=== PATIENT | male | born 1940 | race Caucasian/White ===

== ENCOUNTER 2017-01-14 15:15 | Inpatient (IN) | payer MEDICARE, BC ==
[2017-01-14] MEDS ORDERED: Sodium Chloride 0.9% 1,000 ML IV ONE (15:54)
[2017-01-14] MEDS ORDERED: Morphine 2 MG/ML Syringe IVPUSH ONE (16:21)
[2017-01-14] MEDS ORDERED: Ondansetron 4 MG/2 ML SDV IVPUSH ONE (16:21)
[2017-01-14] MEDS: Sodium Chloride 0.9% 1,000 ML IV SCH (17:18)
[2017-01-14] MEDS ORDERED: Ondansetron 4 MG Tab.DIS PO PRN (17:19)
[2017-01-14] MEDS: HYDROmorphone 2 MG/ML SDV IVPUSH PRN (17:40)
[2017-01-14] MEDS: Nystatin Susp 100,000 Unit/ML 60 ML Bottle PO SCH ×2 (18:00→21:41)
[2017-01-14] MEDS ORDERED: Levofloxacin/Dextrose 5%-Water 750 MG in Premix Bag 1 BAG IV ONE (20:30)
[2017-01-14] MEDS ORDERED: Enoxaparin 60 MG/0.6 ML Syringe ONE (21:29)
[2017-01-14] MEDS: Enoxaparin 40 MG/0.4 ML Syringe SUBCUT SCH (21:42)
[2017-01-14] MEDS: Albuterol/Ipratropium 3.0-0.5 MG/3 ML Neb Soln NEB SCH (21:44)
[2017-01-14] MEDS: Calcium Carbonate/Vitamin D3 1250 MG-200 Unit Tab PO SCH (21:44)
[2017-01-14] MEDS: Metoprolol Tartrate 25 MG Tab PO SCH (21:45)
[2017-01-14] MEDS: Acetaminophen 325 MG Tab PO SCH (21:46)
[2017-01-15] MEDS: Sodium Chloride 0.9% 1,000 ML IV SCH ×3 (02:36→22:16)
[2017-01-15] MEDS: Acetaminophen 325 MG Tab PO PRN ×2 (02:40→18:11)
[2017-01-15] MEDS: Albuterol/Ipratropium 3.0-0.5 MG/3 ML Neb Soln NEB SCH ×4 (07:15→20:58)
[2017-01-15] MEDS: HYDROmorphone 2 MG/ML SDV IVPUSH PRN ×3 (07:44→17:21)
[2017-01-15] MEDS: oxyCODONE 5 MG Tab PO PRN (07:46)
[2017-01-15] MEDS ORDERED: atorvaSTATin 10 MG Tab PO SCH (09:00)
[2017-01-15] MEDS ORDERED: Aspirin 325 MG Tab.EC PO SCH (09:00)
[2017-01-15] MEDS: Metoprolol Tartrate 25 MG Tab PO SCH ×2 (09:19→20:58)
[2017-01-15] MEDS: Calcium Carbonate/Vitamin D3 1250 MG-200 Unit Tab PO SCH ×2 (09:19→20:58)
[2017-01-15] MEDS: Enoxaparin 40 MG/0.4 ML Syringe SUBCUT SCH (09:20)
[2017-01-15] MEDS: Acetaminophen 325 MG Tab PO SCH ×2 (09:20→21:59)
[2017-01-15] MEDS: Nystatin Susp 100,000 Unit/ML 5 ML UD Cup PO SCH ×4 (09:20→20:57)
--- NOTE | 2017-01-15 11:57 | CR ---
INDICATION: Cough and fever. CHEST: An AP upright view of the chest 01/14/2017 was compared with 06/07/2011 , again revealing the heart to be mildly enlarged with post median sternotomy change and calcifications in the aorta. Lungs appear to be hyperaerated, suggesting the possibility of COPD. This should be correlated clinically. A definite active infiltrate or effusion was not identified. However, markings are somewhat heavy at the left lung base, and to a lesser extent right lung base, raising question of minimal patchy bronchopneumonia versus fibrosis. No consolidating pneumonia or effusion was identified, however. IMPRESSION: 1. No definite acute process, but difficult to exclude minimal patchy bronchopneumonia at the lung bases. 2. ASHD, post median sternotomy. 3. Possible COPD. MTDD
--- NOTE | 2017-01-15 18:32 | PCM.HP ---
H&P History of Present Illness - General Date of Service: 01/15/17 Admit Problem/Dx: Admission Diagnosis/Problem Admission Diagnosis/Problem Prostate cancer metastatic to multiple sites Pain management Source of Information: Patient, Old Records, RN History Limitations: Reports: Altered Mental Status (drowsy from pain meds) - History of Present Illness Initial Comments - Free Text/Narative: the patient is a 76-year-old male with a history of prostate cancer with bone metastases who presented to the emergency department last night with intractable pain and a desire to proceed with hospice or comfort cares.the patient had been receiving treatments through [facility] and developed severe jaw pain due to his treatment. Has been unable to eat or drink. Family and patient came in because he wants to stop treatment and begin comfort measures. Other HPI/Comments: Patient complains of generalized body aches, jaw pain, dry mouth, anorexia, no nausea or vomiting. Generalized Pain Score (Numeric/FACES): 4 - Related Data Allergies/Adverse Reactions: Allergies Allergy/AdvReac Type Severity Reaction Status Date / Time No Known Allergies Allergy Verified 01/14/17 17:40 Home Medications: Home Meds Metoprolol Tartrate [Lopressor] 25 mg PO BID 05/25/15 [History] atorvaSTATin [Lipitor] 10 mg PO DAILY 05/25/15 [History] Acetaminophen [Pain Relief] 650 mg PO BID 01/14/17 [History] Aspirin 325 mg PO DAILY 01/14/17 [History] Calcium Carbonate/Vitamin D3 [Calcium 600-Vit D3 800 Tab] 1 each PO BID [History] Hydrocodone/Acetaminophen [Hydrocodon-Acetaminophen 5-325] 1 each PO Q4H PRN [History] Nystatin [Nystatin] 5 ml PO ASDIRECTED 01/14/17 [History] Prochlorperazine Maleate [Prochlorperazine Maleate] 10 mg PO QID PRN 01/14/17 [ History] Tamsulosin [Tamsulosin 24 Hr] 0.4 mg PO DAILY 01/14/17 [History] predniSONE [Prednisone] 5 mg PO BID 01/14/17 [History] Past Medical History HEENT History: Reports: Cataract, Hard of Hearing Cardiovascular History: Reports: Aneurysm, Bypass, Hypertension, CA, Other (See Below) Other Cardiovascular History: carotid artery insufficiency Respiratory History: Reports: SOB Gastrointestinal History: Reports: Chronic Constipation, Colon Polyp Genitourinary History: Reports: Prostate Disorder, Urinary Incontinence Other Genitourinary History: prostate CA Musculoskeletal History: Reports: Arthritis Other Musculoskeletal History: CONGENITAL LEFT ELBOW CONTRACTURE Oncologic (Cancer) History: Reports: Colon, Metastatic, Prostate Other Oncologic History: CA prostate with david 'all over' - Infectious Disease History Infectious Disease History: Reports: Mumps - Past Surgical History HEENT Surgical History: Reports: Cataract Surgery, Tonsillectomy Cardiovascular Surgical History: Reports: Carotid Endarterectomy, Coronary Artery Bypass Other Cardiovascular Surgeries/Procedures: 3 vessel bypass GI Surgical History: Reports: Colon, Colonoscopy, Polypectomy Musculoskeletal Surgical History: Reports: Carpal Tunnel, Other (See Below) Other Musculoskeletal Surgeries/Procedures:: bilat carpal tunnel, back surgery Oncologic Surgical History: Reports: None Social & Family History - Family History Family Medical History: Noncontributory - Tobacco Use Smoking Status *Q: Former Smoker Years of Tobacco use: 20 Used Tobacco, but Quit: Yes Month Tobacco Last Used: 1976 Second Hand Smoke Exposure: No - Caffeine Use Caffeine Use: Reports: Coffee - Alcohol Use Days Per Week of Alcohol Use: 7 Number of Drinks Per Day: 2 Total Drinks Per Week: 14 Date of Last Drink: 01/04/17 - Recreational Drug Use Recreational Drug Use: No H&P Review of Systems - Review of Systems: Review Of Systems: See Below General: Reports: Malaise, Weakness, Fatigue, Night Sweats, Decreased Appetite, Weight Loss HEENT: Reports: Other (facial pain) Pulmonary: Reports: Shortness of Breath (with activity) Cardiovascular: Reports: Dyspnea on Exertion, Lightheadedness Gastrointestinal: Reports: Anorexia Genitourinary: Reports: No Symptoms Musculoskeletal: Reports: Muscle Pain (body aches) Skin: Reports: No Symptoms Exam - Exam Exam: See Below - Vital Signs Vital Signs: Last Vital Signs Temp 37.2 C 01/15/17 11:00 Pulse 90 01/15/17 16:42 Resp 20 01/15/17 11:00 BP 141/66 H 01/15/17 11:00 Pulse Ox 100 01/15/17 16:40 Weight: 67.358 kg - Exam Quality Assessment: Supplemental Oxygen General: Cooperative, Sedated, Lethargic HEENT: PERRLA, Other (mucous membranes coated and dry.) Neck: Supple Lungs: Clear to Auscultation, Decreased Breath Sounds Cardiovascular: Regular Rate, Regular Rhythm GI/Abdominal Exam: Normal Bowel Sounds, Soft, Non-Tender Extremities: No Pedal Edema Skin: Warm, Dry, Intact - Patient Data Lab Results Last 24 hrs: Laboratory Results - last 24 hr 01/14/17 01/14/17 01/15/17 Range/Units 19:47 20:15 07:05 PT 13.8 H (8.7-11.1) INR 1.36 H (0.89-1.13) APTT 29.8 (24.4-33.2) SECONDS ABG pH 7.50 H (7.35-7.45) ABG pCO2 31 L (35-45) mmHg ABG pO2 63 L (83-108) mmHg ABG HCO3 23 (22-26) mmol/L ABG O2 Saturation 94 L (96-97) % ABG Base Excess 1.0 (-2-2) Andres Test Passed O2 Delivery Device Nasal cannula Magnesium (1.8-2.5) mg/dL Troponin I (0.02-0.06) NG/ML Urine Color Yellow (YELLOW) Urine Appearance Clear (CLEAR) Urine pH 5.0 (5.0-6.5) Ur Specific [place] 1.020 (1.010-1.025) Urine Protein 500 H (NEGATIVE) mg/dL Urine Glucose (UA) >1000 H (NEGATIVE) mg/dL Urine Ketones 15 H (NEGATIVE) mg/dL Urine Occult Blood Moderate H (NEGATIVE) Urine Nitrite Negative (NEGATIVE) Urine Bilirubin Negative (NEGATIVE) Urine Urobilinogen Normal (NEGATIVE) mg/dL Ur Leukocyte Esterase Negative (NEGATIVE) Urine RBC 0-5 (0) Urine WBC 0-5 (0) Ur Squamous Epith Cells Few H (NS,R,O) Urine Bacteria Moderate H (NS) Hyaline Casts Few H (NS) 01/15/17 01/15/17 Range/Units 07:05 07:05 PT (8.7-11.1) INR (0.89-1.13) APTT (24.4-33.2) SECONDS ABG pH (7.35-7.45) ABG pCO2 (35-45) mmHg ABG pO2 (83-108) mmHg ABG HCO3 (22-26) mmol/L ABG O2 Saturation (96-97) % ABG Base Excess (-2-2) Andres Test O2 Delivery Device Magnesium 2.1 (1.8-2.5) mg/dL Troponin I 0.30 H (0.02-0.06) NG/ML Urine Color (YELLOW) Urine Appearance (CLEAR) Urine pH (5.0-6.5) Ur Specific [place] (1.010-1.025) Urine Protein (NEGATIVE) mg/dL Urine Glucose (UA) (NEGATIVE) mg/dL Urine Ketones (NEGATIVE) mg/dL Urine Occult Blood (NEGATIVE) Urine Nitrite (NEGATIVE) Urine Bilirubin (NEGATIVE) Urine Urobilinogen (NEGATIVE) mg/dL Ur Leukocyte Esterase (NEGATIVE) Urine RBC (0) Urine WBC (0) Ur Squamous Epith Cells (NS,R,O) Urine Bacteria (NS) Hyaline Casts (NS) Result Diagrams: 01/14/17 15:47 01/14/17 15:47 *Q Meaningful Use (ADM) - VTE *Q VTE Criteria *Q: - Stroke *Q Stroke Criteria *Q: - AMI *Q AMI Criteria *Q: - Problem List (1) Prostate cancer metastatic to bone SNOMED Code(s): 24602962 ICD Code: C61 - MALIGNANT NEOPLASM OF PROSTATE; C79.51 - SECONDARY MALIGNANT NEOPLASM OF BONE Status: Acute Current Visit: Yes Problem Details: Patient with terminal disease, 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 Pain management, symptom management, and we will work with family on disposition. They met with hospice today, seeking instead long term facility for 24 hour care. Once pain is controlled, may be discharged to skilled facility for end of life cares. Problem List Initiated/Reviewed/Updated: Yes Orders Last 24hrs: Active Orders 24 hr Category Date Time Status Oxygen Therapy [RC] PRN Care 01/14/17 17:32 Active Vital Signs [RC] 08,12,16,20,00,04 Care 01/14/17 17:32 Active Consult to Hospice [CONS] Routine Cons 01/15/17 08:00 Active Acetaminophen [Tylenol] Med 01/14/17 21:00 Active 650 mg PO BID Acetaminophen [Tylenol] Med 01/15/17 00:10 Active 650 mg PO Q4H PRN Aspirin [Ecotrin] Med 01/15/17 09:00 Active 325 mg PO DAILY Calcium Carbonate/Vitamin D3 [Calcium Carbonate/Vitamin Med 01/14/17 21:00 Active D 1250 MG-200 Unit] 1 tab PO BID HYDROmorphone [Dilaudid] Med 01/14/17 17:34 Active 0.5 mg IVPUSH Q2H PRN Metoprolol Tartrate [Lopressor] Med 01/14/17 21:00 Active 25 mg PO BID Nystatin [Mycostatin] Med 01/15/17 09:00 Active 5 ml PO QID atorvaSTATin [Lipitor] Med 01/15/17 09:00 Active 10 mg PO DAILY EKG 12 Lead [EK] AM Ther 01/15/17 05:11 Ordered Medication Orders Acetaminophen (Tylenol) 650 mg PO BID [facility] [place] Last Admin: 01/15/17 09:20 Dose: 650 mg Admin: 01/14/17 21:46 Dose: 650 mg Acetaminophen (Tylenol) 650 mg PO Q4H PRN PRN Reason: Temperature Last Admin: 01/15/17 18:11 Dose: 650 mg Admin: 01/15/17 02:40 Dose: 650 mg Albuterol/Ipratropium (Duoneb 3.0-0.5 Mg/3 Ml) 3 ml NEB QIDRT [facility] [place] Last Admin: 01/15/17 16:40 Dose: 3 ml Admin: 01/15/17 11:05 Dose: 3 ml Admin: 01/15/17 07:15 Dose: 3 ml Admin: 01/14/17 21:44 Dose: 3 ml Aspirin (Ecotrin) 325 mg PO DAILY [facility] [place] Last Admin: 01/15/17 09:19 Dose: 325 mg Atorvastatin Calcium (Lipitor) 10 mg PO DAILY [facility] Last Admin: 01/15/17 09:19 Dose: 10 mg Calcium Carbonate (Calcium Carbonate/Vitamin D 1250 Mg-200 Unit) 1 tab PO BID [facility] Last Admin: 01/15/17 09:19 Dose: 1 tab Admin: 01/14/17 21:44 Dose: 1 tab Enoxaparin Sodium (Lovenox) 40 mg SUBCUT DAILY [facility] [place] Last Admin: 01/15/17 09:20 Dose: 40 mg Admin: 01/14/17 21:42 Dose: 40 mg Hydromorphone HCl (Dilaudid) 0.5 mg IVPUSH Q2H PRN PRN Reason: Pain Last Admin: 01/15/17 17:21 Dose: 0.5 mg Admin: 01/15/17 13:07 Dose: 0.5 mg Admin: 01/15/17 07:44 Dose: 0.5 mg Admin: 01/14/17 17:40 Dose: 0.5 mg Sodium Chloride (Normal Saline) 1,000 mls @ 100 mls/hr IV ASDIRECTED [facility] [place] Last Admin: 01/15/17 12:51 Dose: 100 mls/hr Infusion: 01/15/17 12:36 Dose: 100 mls/hr Admin: 01/15/17 02:36 Dose: 100 mls/hr Infusion: 01/15/17 02:36 Dose: 100 mls/hr Admin: 01/14/17 17:18 Dose: 100 mls/hr Metoprolol Tartrate (Lopressor) 25 mg PO BID [facility] [place] Last Admin: 01/15/17 09:19 Dose: 25 mg Admin: 01/14/17 21:45 Dose: 25 mg Nystatin (Mycostatin) 5 ml PO QID [facility] Last Admin: 01/15/17 17:15 Dose: 5 ml Admin: 01/15/17 12:54 Dose: 5 ml Admin: 01/15/17 09:20 Dose: 5 ml Ondansetron HCl (Zofran Odt) 4 mg PO Q6H PRN PRN Reason: nausea, able to take PO Oxycodone HCl (Oxycodone) 5 mg PO Q4H PRN PRN Reason: Pain (moderate 4-6) Last Admin: 01/15/17 07:46 Dose: 5 mg Senna/Docusate Sodium (Senna Plus) 1 tab PO BID PRN PRN Reason: Constipation Last Admin: 01/15/17 13:06 Dose: 1 tab
[2017-01-15] MEDS ORDERED: LORazepam 0.5 MG Tab PO PRN (18:53)
[2017-01-16] MEDS: Morphine 2 MG/ML Syringe IVPUSH PRN ×4 (03:05→17:56)
[2017-01-16] MEDS: Acetaminophen 325 MG Tab PO PRN (03:29)
[2017-01-16] MEDS: Albuterol/Ipratropium 3.0-0.5 MG/3 ML Neb Soln NEB SCH ×4 (07:27→20:43)
[2017-01-16] MEDS: Sodium Chloride 0.9% 1,000 ML IV SCH ×2 (08:40→17:57)
[2017-01-16] MEDS: Calcium Carbonate/Vitamin D3 1250 MG-200 Unit Tab PO SCH (08:44)
[2017-01-16] MEDS: Metoprolol Tartrate 25 MG Tab PO SCH (08:44)
[2017-01-16] MEDS: Nystatin Susp 100,000 Unit/ML 5 ML UD Cup PO SCH ×4 (08:49→20:43)
[2017-01-16] MEDS: Acetaminophen 325 MG Tab PO SCH (08:49)
--- NOTE | 2017-01-16 11:00 | ER ---
DATE SEEN: 01/14/2017 TIME SEEN: The patient was seen at 1614 hours. HISTORY OF PRESENT ILLNESS: Celso is a 76-year-old man, who has previously been diagnosed with prostate cancer with mets to the bone, hypertension, lymphedema, extensive rash in his mouth (thrush). He has had 2 chemotherapy treatments. His left carotid artery is compromised, and he is coughing. He has mild left face and jaw discomfort and swelling. Denies any recent dental problems. He feels "like a piece of crap." Previous knee surgery in 1976, prostate surgery with prostate biopsies, hypertension, coronary artery disease, and swelling in his ankles. No congestive heart failure. History of hypertension, right leg reconstructive surgery, and plastic surgery in 2012. Never smoked. He is overweight. MEDICATIONS: 1. DuoNeb. 2. Aspirin. 3. Atorvastatin. 4. Calcium carbonate. 5. Acetaminophen and hydrocodone. 6. Prednisone. 7. Flomax. 8. Compazine. REVIEW OF SYSTEMS: The patient feels uncomfortable, was not delirious. Denies headache, neck stiffness, shortness of breath, cough, abdominal discomfort, or leg pain. He just feels weak and feels miserable. OBJECTIVE: VITAL SIGNS: Blood pressure supine 117/72, repeat supine 166/63, repeat sitting 146/63, and normal supine 143/67. Heart rate 100 and went down to 94, respirations 20, and oxygen saturation 98% to 100%. GENERAL: The patient is alert, but has a moses face. It is more moses than normal. Normally, he is without a moses face. There is mild tenderness to the side of his face on the left side. No history of falls or trauma. There is mild increased warmth but no excessive changes there. HEENT: Pharynx without abnormality. Most notable, the patient has florid thrush in his mouth. He has a white coat in his mouth. No thyromegaly. No mass in the neck. No maxillary sinus tenderness. No neck stiffness. Pupils are equal, round, and reactive to light. NECK: No bruits in neck. Neck is supple. LUNGS: Scattered rales in the lungs. HEART: S1, S2. No murmur. ABDOMEN: Soft. Moderate fullness in the abdomen. Mild tenderness to the left and right upper and lower quadrants, not extensive. No guarding. No CVA percussion tenderness. NEUROLOGIC: Deep tendon reflexes hypoactive, but present in upper and lower extremities. Cranial nerves 2 through 12 intact. Oriented x3. The patient has an infection. Etiology of the infection is indeterminate. His chest x-ray is nondescript, unchanged from previous chest x-ray. No signs of cardiomegaly, cephalization, he has sternotomy incision, wires anterior. Diaphragms are crisp with no lesions noted in the lungs. Assessment: Etiology for the patient's fever indeterminate, but perhaps related to his prostate cancer and metastases to his bone and associated fever. LABORATORY FINDINGS: White count 26,000, PMNs 95, lymphocytes 1, monos 2, a few toxic granulations, and bands 2%. ABGs: pH of 7.50, pCO2 of 31, pO2 of 63, and base excess of 1 - hyperventilation, respiratory alkalosis secondary to hypoxia and poor ventilation. Complete metabolic panel: Sodium 136, potassium 4.1, chloride 99, bicarb 25, BUN 29, BUN and creatinine ratio 32 - dehydration, GFR greater than 60, lactic acid 1.5, and calcium 7.8 with an abnormal albumin of 2.3, which results in calculated calcium of 8.5 range. Urinalysis: Greater than 1,000 glucose, greater than 500 protein, moderate occult blood, moderate bacteria in the urine, a few hyaline casts, and a few epithelial cells. DIAGNOSES: 1. Evidence for an infectious, etiology is indeterminate. He has had prostate cancer. Plan Levaquin. See EKG. Chest x-ray: No evidence for infiltrate. Blood culture is pending. Lactic acid is not elevated. 2. Status post triple bypass, carotid endarterectomy, and previous partial colon resection. 3. Neutrophilic leukocytosis. The patient is admitted for observation and cares. He is on enoxaparin, because of his cancer, to diminish potential for DVT. The patient was given morphine for his pain, requires more pain medicine p.r.n. /[id number] SIMA/VI
--- NOTE | 2017-01-16 13:09 | PCM.PN ---
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 He came in febrile with increased white count appearing septic. Family and patient are interested in comfort measures. He is very comfortable today. Resting well. No abdominal pain, no nausea. Does feel sense of fullness and discomfort suprapubically and he was straight cathetered for over 400 mL of urine earlier today when he wasn't voiding well. IV fluids are running at 100 cc/hr. I had a long discussion with the and son who were present, regarding the patient's positive blood cultures, fever, and evidence of facial infection. He and they would like to pursue aggressive comfort measures with no life-prolonging treatment. He is currently well-controlled. Functional Status: Reports: Pain Controlled - Patient Data Vitals - Most Recent: Last Vital Signs Temp 37.1 C 01/16/17 12:00 Pulse 96 01/16/17 09:19 Resp 18 01/16/17 12:00 BP 126/76 01/16/17 12:00 Pulse Ox 91 L 01/16/17 12:39 Weight - Most Recent: 68.583 kg I&O - Last 24 Hours: Intake & Output 01/15/17 01/16/17 01/16/17 22:59 06:59 14:59 Intake Total 1019 880 Output Total 400 575 Balance 619 305 Med Orders - Current: Current Medications Acetaminophen (Tylenol) 650 mg PO BID [facility] Last Admin: 01/16/17 08:49 Dose: 650 mg Acetaminophen (Tylenol) 650 mg PO Q4H PRN PRN Reason: Temperature Last Admin: 01/16/17 03:29 Dose: 650 mg Albuterol/Ipratropium (Duoneb 3.0-0.5 Mg/3 Ml) 3 ml NEB QIDRT [facility] Last Admin: 01/16/17 10:59 Dose: 3 ml Calcium Carbonate (Calcium Carbonate/Vitamin D 1250 Mg-200 Unit) 1 tab PO BID [facility] Last Admin: 01/16/17 08:44 Dose: 1 tab Hydromorphone HCl (Dilaudid) 0.5 mg IVPUSH Q2H PRN PRN Reason: Pain Last Admin: 01/15/17 17:21 Dose: 0.5 mg Sodium Chloride (Normal Saline) 1,000 mls @ 100 mls/hr IV ASDIRECTED [facility] Last Admin: 01/16/17 08:40 Dose: 100 mls/hr Lorazepam (Ativan) 0.5 mg PO Q8H PRN PRN Reason: Anxiety Metoprolol Tartrate (Lopressor) 25 mg PO BID [facility] Last Admin: 01/16/17 08:44 Dose: 25 mg Morphine Sulfate (Morphine) 1 mg IVPUSH Q4H PRN PRN Reason: air hunger Last Admin: 01/16/17 09:14 Dose: 1 mg Nystatin (Mycostatin) 5 ml PO QID [facility] Last Admin: 01/16/17 12:54 Dose: 5 ml Ondansetron HCl (Zofran Odt) 4 mg PO Q6H PRN PRN Reason: nausea, able to take PO Oxycodone HCl (Oxycodone) 5 mg PO Q4H PRN PRN Reason: Pain (moderate 4-6) Last Admin: 01/15/17 07:46 Dose: 5 mg Senna/Docusate Sodium (Senna Plus) 1 tab PO BID PRN PRN Reason: Constipation Last Admin: 01/15/17 13:06 Dose: 1 tab Discontinued Medications Aspirin (Ecotrin) 325 mg PO DAILY [facility] Last Admin: 01/15/17 09:19 Dose: 325 mg Atorvastatin Calcium (Lipitor) 10 mg PO DAILY [facility] Last Admin: 01/15/17 09:19 Dose: 10 mg Enoxaparin Sodium (Lovenox) 40 mg SUBCUT DAILY [facility] Last Admin: 01/15/17 09:20 Dose: 40 mg Enoxaparin Sodium (Lovenox) Confirm Administered Dose 60 mg .ROUTE .STK-MED ONE Stop: 01/14/17 21:30 Last Admin: 01/14/17 21:45 Dose: Not Given Sodium Chloride (Normal Saline) 1,000 mls @ 999 mls/hr IV .BOLUS ONE Stop: 01/14/17 16:54 Last Admin: 01/14/17 15:59 Dose: 999 mls/hr Levofloxacin/Dextrose 750 mg/ (Premix) 150 mls @ 100 mls/hr IV ONETIME ONE Stop: 01/14/17 21:59 Last Admin: 01/14/17 21:52 Dose: 100 mls/hr Morphine Sulfate (Morphine) 2 mg IVPUSH ONETIME ONE Stop: 01/14/17 16:22 Last Admin: 01/14/17 16:29 Dose: 2 mg Nystatin (Mycostatin) 5 ml PO QID [facility] Last Admin: 01/14/17 21:41 Dose: Not Given Ondansetron HCl (Zofran) 4 mg IVPUSH ONETIME ONE Stop: 01/14/17 16:22 Last Admin: 01/14/17 16:28 Dose: 4 mg - Exam General: Sedated (Arousable.) HEENT: Other (Left eye is swollen shut. He's got what appears to be a cellulitis on the left side of the face with erythema and edema around the left eye. 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 Working on disposition. Patient shows evidence of sepsis and febrile. Likely to pass within 48 hours. [place] is necrotic jaw with infection and spread to soft tissues. (2) Palliative care encounter SNOMED Code(s): 825423629 Code(s): Z51.5 - ENCOUNTER FOR PALLIATIVE CARE Status: Acute Current Visit: Yes Annotation/Comment:: Discussed with son. Goal is comfort. D/ C IVF and just do TKO for IV pain meds. D/C PO meds that are not for comfort. No tx for infection, guajardo catheter for urinary retention, contact family as current status is poor. (3) Acute urinary retention SNOMED Code(s): 492787558 Code(s): R33.8 - OTHER RETENTION OF URINE Status: Acute Current Visit: Yes Annotation/Comment:: Guajardo catheter placed. - Problem List Review Problem List Initiated/Reviewed/Updated: Yes - My Orders Last 24 Hours: My Active Orders 01/15/17 18:51 Morphine 1 mg IVPUSH Q4H PRN 01/15/17 18:53 LORazepam [Ativan] 0.5 mg PO Q8H PRN - Plan Plan:: Anticipate from overwhelming sepsis due to infected osteonecrosis of jaw, secondary to treatment for stage IV prostate cancer which has not been amenable to tx.
[2017-01-16] MEDS: Acetaminophen 650 MG Supp RECTAL PRN ×2 (16:53→23:50)
[2017-01-17] MEDS: Morphine 2 MG/ML Syringe IVPUSH PRN ×4 (02:28→22:30)
[2017-01-17] MEDS: Acetaminophen 650 MG Supp RECTAL PRN ×3 (06:11→18:13)
[2017-01-17] MEDS: Albuterol/Ipratropium 3.0-0.5 MG/3 ML Neb Soln NEB SCH (07:14)
[2017-01-17] MEDS: Nystatin Susp 100,000 Unit/ML 5 ML UD Cup PO SCH ×4 (08:49→20:00)
[2017-01-17] MEDS: oxyCODONE 5 MG Tab PO PRN (11:42)
--- NOTE | 2017-01-17 11:45 | PCM.PN ---
- General Info Date of Service: 01/17/17 Subjective Update: 76-year-old male currently on hospital day #4 for metastatic prostate cancer, pain management, gram-positive cocci bacteremia with sepsis, pursuing comfort cares. Patient is comfortable today. He seems in good spirits. Says pain is well controlled. Would like some ice cream. Functional Status: Reports: Pain Controlled - Patient Data Vitals - Most Recent: Last Vital Signs Temp 37.9 C 01/17/17 08:00 Pulse 112 H 01/17/17 08:35 Resp 16 01/17/17 08:00 BP 150/65 H 01/17/17 08:00 Pulse Ox 91 L 01/17/17 08:35 Weight - Most Recent: 69.354 kg I&O - Last 24 Hours: Intake & Output 01/16/17 01/17/17 01/17/17 22:59 06:59 14:59 Intake Total 603 311 Output Total 750 700 Balance -147 -389 Med Orders - Current: Current Medications Acetaminophen (Tylenol) 650 mg RECTAL Q6H PRN PRN Reason: Pain Last Admin: 01/17/17 06:11 Dose: 650 mg Hydromorphone HCl (Dilaudid) 0.5 mg IVPUSH Q2H PRN PRN Reason: Pain Last Admin: 01/15/17 17:21 Dose: 0.5 mg Sodium Chloride (Normal Saline) 1,000 mls @ 0 mls/hr IV ASDIRECTED [facility] PRN Reason: KVO Last Infusion: 01/16/17 20:30 Dose: 30 mls/hr Lorazepam (Ativan) 0.5 mg PO Q8H PRN PRN Reason: Anxiety Morphine Sulfate (Morphine) 1 mg IVPUSH Q4H PRN PRN Reason: air hunger Last Admin: 01/17/17 08:07 Dose: 1 mg Nystatin (Mycostatin) 5 ml PO QID [facility] Last Admin: 01/17/17 08:49 Dose: 5 ml Ondansetron HCl (Zofran Odt) 4 mg PO Q6H PRN PRN Reason: nausea, able to take PO Oxycodone HCl (Oxycodone) 5 mg PO Q4H PRN PRN Reason: Pain (moderate 4-6) Last Admin: 01/15/17 07:46 Dose: 5 mg Discontinued Medications Acetaminophen (Tylenol) 650 mg PO BID [facility] Last Admin: 01/16/17 08:49 Dose: 650 mg Acetaminophen (Tylenol) 650 mg PO Q4H PRN PRN Reason: Temperature Last Admin: 01/16/17 03:29 Dose: 650 mg Albuterol/Ipratropium (Duoneb 3.0-0.5 Mg/3 Ml) 3 ml NEB QIDRT [facility] Last Admin: 01/17/17 07:14 Dose: 3 ml Aspirin (Ecotrin) 325 mg PO DAILY [facility] Last Admin: 01/15/17 09:19 Dose: 325 mg Atorvastatin Calcium (Lipitor) 10 mg PO DAILY [facility] Last Admin: 01/15/17 09:19 Dose: 10 mg Calcium Carbonate (Calcium Carbonate/Vitamin D 1250 Mg-200 Unit) 1 tab PO BID [facility] Last Admin: 01/16/17 08:44 Dose: 1 tab Enoxaparin Sodium (Lovenox) 40 mg SUBCUT DAILY [facility] Last Admin: 01/15/17 09:20 Dose: 40 mg Enoxaparin Sodium (Lovenox) Confirm Administered Dose 60 mg .ROUTE .STK-MED ONE Stop: 01/14/17 21:30 Last Admin: 01/14/17 21:45 Dose: Not Given Sodium Chloride (Normal Saline) 1,000 mls @ 999 mls/hr IV .BOLUS ONE Stop: 01/14/17 16:54 Last Admin: 01/14/17 15:59 Dose: 999 mls/hr Levofloxacin/Dextrose 750 mg/ (Premix) 150 mls @ 100 mls/hr IV ONETIME ONE Stop: 01/14/17 21:59 Last Admin: 01/14/17 21:52 Dose: 100 mls/hr Metoprolol Tartrate (Lopressor) 25 mg PO BID [facility] Last Admin: 01/16/17 08:44 Dose: 25 mg Morphine Sulfate (Morphine) 2 mg IVPUSH ONETIME ONE Stop: 01/14/17 16:22 Last Admin: 01/14/17 16:29 Dose: 2 mg Nystatin (Mycostatin) 5 ml PO QID [facility] Last Admin: 01/14/17 21:41 Dose: Not Given Ondansetron HCl (Zofran) 4 mg IVPUSH ONETIME ONE Stop: 01/14/17 16:22 Last Admin: 01/14/17 16:28 Dose: 4 mg Senna/Docusate Sodium (Senna Plus) 1 tab PO BID PRN PRN Reason: Constipation Last Admin: 01/15/17 13:06 Dose: 1 tab - Exam Quality Assessment: Supplemental Oxygen (PRN SOB) General: Sedated HEENT: Other (Face is swollen, edematous, erythematous, slightly indurated on the left. Has what appears to be a cellulitis around the left cheek and eye. The eyelid is swollen almost completely shut. On the right he has a little edema around the right orbit.) Neck: Supple Lungs: Clear to Auscultation, Normal Respiratory Effort, Decreased Breath Sounds Cardiovascular: Regular Rhythm, No Murmurs, Tachycardia GI/Abdominal Exam: Other (Diminished bowel sounds throughout. Abdomen is diffusely tender. Mild rebound tenderness. 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 Working on disposition. Patient shows evidence of sepsis and febrile. Likely to pass within 48 hours. [place] is necrotic jaw with infection and spread to soft tissues. At this time appears to have a periorbital cellulitis. (2) Palliative care encounter SNOMED Code(s): 745793424 Code(s): Z51.5 - ENCOUNTER FOR PALLIATIVE CARE Status: Acute Current Visit: Yes Annotation/Comment:: Continues with TKO IV fluids and IV pain medication. Ramirez catheter in place. We'll discontinue nebulizers as they don't appear to provide any additional comfort to the patient. Patient appears to be septic at this point. Blood cultures are positive. Continue monitoring. (3) Acute urinary retention SNOMED Code(s): 188385967 Code(s): R33.8 - OTHER RETENTION OF URINE Status: Acute Current Visit: Yes Annotation/Comment:: Ramirez catheter placed. - Problem List Review Problem List Initiated/Reviewed/Updated: Yes - My Orders Last 24 Hours: My Active Orders 01/16/17 13:08 Urinary Catheter Assessment [RC] QSHIFT 01/16/17 13:15 Ramirez Catheter Insertion [Insert Urinary Catheter] [OM.PC] Q24H 01/16/17 16:46 Acetaminophen [Tylenol] 650 mg RECTAL Q6H PRN 01/16/17 17:01 Code Status [Resuscitation Status] Routine - Plan Plan:: Anticipate from overwhelming sepsis due to infected osteonecrosis of jaw, secondary to treatment for stage IV prostate cancer which has not been amenable to tx.
[2017-01-17] MEDS: HYDROmorphone 2 MG/ML SDV IVPUSH PRN (19:38)
[2017-01-17] MEDS: Sodium Chloride 0.9% 1,000 ML IV SCH (20:14)
[2017-01-18] MEDS: Morphine 2 MG/ML Syringe IVPUSH PRN ×2 (02:16→08:15)
[2017-01-18] MEDS: Acetaminophen 650 MG Supp RECTAL PRN ×2 (05:51→12:57)
--- NOTE | 2017-01-18 08:15 | PCM.PN ---
- General Info Date of Service: 01/18/17 Admission Dx/Problem (Free Text): Patient very sleepy but does respond and knows who I am this morning. He states he's not having any pain. He had some chills last night but he is better. No coughing, runny nose, chest pain. - Patient Data Vitals - Most Recent: Last Vital Signs Temp 102.6 F H 01/18/17 05:56 Pulse 110 H 01/18/17 04:00 Resp 20 01/18/17 04:00 BP 146/82 H 01/18/17 04:00 Pulse Ox 95 01/18/17 04:00 Weight - Most Recent: 151 lb 4.8 oz I&O - Last 24 Hours: Intake & Output 01/17/17 01/18/17 01/18/17 22:59 06:59 14:59 Intake Total 413 228 Output Total 550 425 Balance -137 -197 Med Orders - Current: Current Medications Acetaminophen (Tylenol) 650 mg RECTAL Q6H PRN PRN Reason: Pain Last Admin: 01/18/17 05:51 Dose: 650 mg Hydromorphone HCl (Dilaudid) 0.5 mg IVPUSH Q2H PRN PRN Reason: Pain Last Admin: 01/17/17 19:38 Dose: 0.5 mg Sodium Chloride (Normal Saline) 1,000 mls @ 0 mls/hr IV ASDIRECTED [facility] PRN Reason: KVO Last Admin: 01/17/17 20:14 Dose: 30 mls/hr Lorazepam (Ativan) 0.5 mg PO Q8H PRN PRN Reason: Anxiety Morphine Sulfate (Morphine) 1 mg IVPUSH Q4H PRN PRN Reason: air hunger Last Admin: 01/18/17 02:16 Dose: 1 mg Nystatin (Mycostatin) 5 ml PO QID [facility] Last Admin: 01/17/17 20:00 Dose: 5 ml Ondansetron HCl (Zofran Odt) 4 mg PO Q6H PRN PRN Reason: nausea, able to take PO Oxycodone HCl (Oxycodone) 5 mg PO Q4H PRN PRN Reason: Pain (moderate 4-6) Last Admin: 01/17/17 11:42 Dose: 5 mg Discontinued Medications Acetaminophen (Tylenol) 650 mg PO BID [facility] Last Admin: 01/16/17 08:49 Dose: 650 mg Acetaminophen (Tylenol) 650 mg PO Q4H PRN PRN Reason: Temperature Last Admin: 01/16/17 03:29 Dose: 650 mg Albuterol/Ipratropium (Duoneb 3.0-0.5 Mg/3 Ml) 3 ml NEB QIDRT [facility] Last Admin: 01/17/17 07:14 Dose: 3 ml Aspirin (Ecotrin) 325 mg PO DAILY [facility] Last Admin: 01/15/17 09:19 Dose: 325 mg Atorvastatin Calcium (Lipitor) 10 mg PO DAILY [facility] Last Admin: 01/15/17 09:19 Dose: 10 mg Calcium Carbonate (Calcium Carbonate/Vitamin D 1250 Mg-200 Unit) 1 tab PO BID [facility] Last Admin: 01/16/17 08:44 Dose: 1 tab Enoxaparin Sodium (Lovenox) 40 mg SUBCUT DAILY [facility] Last Admin: 01/15/17 09:20 Dose: 40 mg Enoxaparin Sodium (Lovenox) Confirm Administered Dose 60 mg .ROUTE .STK-MED ONE Stop: 01/14/17 21:30 Last Admin: 01/14/17 21:45 Dose: Not Given Sodium Chloride (Normal Saline) 1,000 mls @ 999 mls/hr IV .BOLUS ONE Stop: 01/14/17 16:54 Last Admin: 01/14/17 15:59 Dose: 999 mls/hr Levofloxacin/Dextrose 750 mg/ (Premix) 150 mls @ 100 mls/hr IV ONETIME ONE Stop: 01/14/17 21:59 Last Admin: 01/14/17 21:52 Dose: 100 mls/hr Metoprolol Tartrate (Lopressor) 25 mg PO BID [facility] Last Admin: 01/16/17 08:44 Dose: 25 mg Morphine Sulfate (Morphine) 2 mg IVPUSH ONETIME ONE Stop: 01/14/17 16:22 Last Admin: 01/14/17 16:29 Dose: 2 mg Nystatin (Mycostatin) 5 ml PO QID [facility] Last Admin: 01/14/17 21:41 Dose: Not Given Ondansetron HCl (Zofran) 4 mg IVPUSH ONETIME ONE Stop: 01/14/17 16:22 Last Admin: 01/14/17 16:28 Dose: 4 mg Senna/Docusate Sodium (Senna Plus) 1 tab PO BID PRN PRN Reason: Constipation Last Admin: 01/15/17 13:06 Dose: 1 tab - Exam General: Oriented, Cooperative, Lethargic Neck: Supple Lungs: Clear to Auscultation, Normal Respiratory Effort Cardiovascular: Regular Rate, Regular Rhythm, No Murmurs Extremities: Non-Tender, No Pedal Edema - Problem List & Annotations (1) Acute urinary retention SNOMED Code(s): 186609831 Code(s): R33.8 - OTHER RETENTION OF URINE Status: Acute Current Visit: Yes Annotation/Comment:: Ramirez catheter placed. (2) Palliative care encounter SNOMED Code(s): 221926524 Code(s): Z51.5 - ENCOUNTER FOR PALLIATIVE CARE Status: Acute Current Visit: Yes Annotation/Comment:: Continues with TKO IV fluids and IV pain medication. Ramirez catheter in place. We'll discontinue nebulizers as they don't appear to provide any additional comfort to the patient. Patient appears to be septic at this point. Blood cultures are positive. Continue monitoring. 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 Working on disposition. Patient shows evidence of sepsis and febrile. Likely to pass within 48 hours. [place] is necrotic jaw with infection and spread to soft tissues. At this time appears to have a periorbital cellulitis. (4) Sepsis SNOMED Code(s): 17075568 Code(s): A41.9 - SEPSIS, UNSPECIFIED ORGANISM Status: Acute Current Visit : Yes - Problem List Review Problem List Initiated/Reviewed/Updated: Yes - Plan Plan:: Anticipate from overwhelming sepsis due to infected osteonecrosis of jaw, secondary to treatment for stage IV prostate cancer which has not been amenable to tx. patient and family did not want any treatment to prolong life.
[2017-01-18] MEDS: Nystatin Susp 100,000 Unit/ML 5 ML UD Cup PO SCH ×2 (09:54→13:24)
[2017-01-18] MEDS: HYDROmorphone 2 MG/ML SDV IVPUSH PRN (12:56)
[2017-01-18] MEDS: oxyCODONE 5 MG Tab PO PRN (12:57)
[2017-01-18 14:00] VITALS: BP 141/68
--- NOTE | 2017-01-18 15:13 | PCM.SN ---
- Free Text/Narrative Note: [facility] agreed [facility] in transfer and put him on hospice. Family is in agreement to be transferred to [facility] in [facility] and hospice. Orders per hospice.
--- NOTE | 2017-01-18 17:44 | PCM.DCSUM1 ---
Discharge Summary - Hospital Course Free Text/Narrative:: Hospital course-patient was admitted and had positive blood cultures. He and the family decided they did not want any treatment even though he was probably septic. He has necrosis of the jaw and metastatic prostate cancer. He was febrile while he is here. And since they elected for comfort care only all his medications were taken away and IV was TKO. They did find placement [facility] on hospice. He was transferred there for hospice care. Brief History: the patient is a 76-year-old male with a history of prostate cancer with bone metastases who presented to the emergency department last night with intractable pain and a desire to proceed with hospice or comfort cares.the patient had been receiving treatments through [facility] and developed severe jaw pain due to his treatment. Has been unable to eat or drink. Family and patient came in because he wants to stop treatment and begin comfort measures. - Discharge Data Discharge Date: 01/18/17 Discharge Disposition: DC/[facility] to [facility] Condition: Poor - Discharge Diagnosis/Problem(s) (1) Acute urinary retention SNOMED Code(s): 961222140 ICD Code: R33.8 - OTHER RETENTION OF URINE Status: Acute Problem Details : Ramirez catheter placed. (2) Palliative care encounter SNOMED Code(s): 169973388 ICD Code: Z51.5 - ENCOUNTER FOR PALLIATIVE CARE Status: Acute Problem Details: Continues with TKO IV fluids and IV pain medication. Ramirez catheter in place. We'll discontinue nebulizers as they don't appear to provide any additional comfort to the patient. Patient appears to be septic at this point. Blood cultures are positive. Continue monitoring. 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 Working on disposition. Patient shows evidence of sepsis and febrile. Likely to pass within 48 hours. [place] is necrotic jaw with infection and spread to soft tissues. At this time appears to have a periorbital cellulitis. (4) Sepsis SNOMED Code(s): 69699557 ICD Code: A41.9 - SEPSIS, UNSPECIFIED ORGANISM Status: Acute - Patient Summary/Data Consults: Consultations 01/15/17 08:00 Consult to Hospice [CONS] Routine Comment: Physician Instructions: - Patient Instructions Diet: Regular Diet as Tolerated Activity: Bedrest Driving: Do Not Drive Showering/Bathing: No Showering Other/Special Instructions: 1. Transfer to [facility]. 2. No home meds. 3. Hospice. See hospice standing orders. - Discharge Plan Home Medications: Home Meds Metoprolol Tartrate [Lopressor] 25 mg PO BID 05/25/15 [History] atorvaSTATin [Lipitor] 10 mg PO DAILY 05/25/15 [History] Acetaminophen [Pain Relief] 650 mg PO BID 01/14/17 [History] Aspirin 325 mg PO DAILY 01/14/17 [History] Calcium Carbonate/Vitamin D3 [Calcium 600-Vit D3 800 Tab] 1 each PO BID [History] Hydrocodone/Acetaminophen [Hydrocodon-Acetaminophen 5-325] 1 each PO Q4H PRN [History] Nystatin [Nystatin] 5 ml PO ASDIRECTED 01/14/17 [History] Prochlorperazine Maleate [Prochlorperazine Maleate] 10 mg PO QID PRN 01/14/17 [ History] Tamsulosin [Tamsulosin 24 Hr] 0.4 mg PO DAILY 01/14/17 [History] predniSONE [Prednisone] 5 mg PO BID 01/14/17 [History] Forms: ED Department Discharge Referrals: Ag Joy MD [Primary Care Provider] - - Discharge Summary/Plan Comment DC Time >30 min.: No - Patient Data Vitals - Most Recent: Last Vital Signs Temp 102.2 F H 01/18/17 12:50 Pulse 106 H 01/18/17 12:50 Resp 24 H 01/18/17 12:50 BP 141/68 H 01/18/17 12:50 Pulse Ox 96 01/18/17 12:50 Weight - Most Recent: 151 lb 4.8 oz I&O - Last 24 hours: Intake & Output 01/18/17 01/18/17 01/18/17 06:59 14:59 22:59 Intake Total 228 227 Output Total 425 200 Balance -197 27 Med Orders - Current: Current Medications Discontinued Medications Acetaminophen (Tylenol) 650 mg PO BID [facility] Last Admin: 01/16/17 08:49 Dose: 650 mg Acetaminophen (Tylenol) 650 mg PO Q4H PRN PRN Reason: Temperature Last Admin: 01/16/17 03:29 Dose: 650 mg Acetaminophen (Tylenol) 650 mg RECTAL Q6H PRN PRN Reason: Pain Last Admin: 01/18/17 12:57 Dose: 650 mg Albuterol/Ipratropium (Duoneb 3.0-0.5 Mg/3 Ml) 3 ml NEB QIDRT [facility] Last Admin: 01/17/17 07:14 Dose: 3 ml Aspirin (Ecotrin) 325 mg PO DAILY [facility] Last Admin: 01/15/17 09:19 Dose: 325 mg Atorvastatin Calcium (Lipitor) 10 mg PO DAILY [facility] Last Admin: 01/15/17 09:19 Dose: 10 mg Calcium Carbonate (Calcium Carbonate/Vitamin D 1250 Mg-200 Unit) 1 tab PO BID [facility] Last Admin: 01/16/17 08:44 Dose: 1 tab Enoxaparin Sodium (Lovenox) 40 mg SUBCUT DAILY [facility] Last Admin: 01/15/17 09:20 Dose: 40 mg Enoxaparin Sodium (Lovenox) Confirm Administered Dose 60 mg .ROUTE .STK-MED ONE Stop: 01/14/17 21:30 Last Admin: 01/14/17 21:45 Dose: Not Given Hydromorphone HCl (Dilaudid) 0.5 mg IVPUSH Q2H PRN PRN Reason: Pain Last Admin: 01/18/17 12:56 Dose: 0.5 mg Sodium Chloride (Normal Saline) 1,000 mls @ 999 mls/hr IV .BOLUS ONE Stop: 01/14/17 16:54 Last Admin: 01/14/17 15:59 Dose: 999 mls/hr Sodium Chloride (Normal Saline) 1,000 mls @ 0 mls/hr IV ASDIRECTED [facility] PRN Reason: KVO Last Admin: 01/17/17 20:14 Dose: 30 mls/hr Levofloxacin/Dextrose 750 mg/ (Premix) 150 mls @ 100 mls/hr IV ONETIME ONE Stop: 01/14/17 21:59 Last Admin: 01/14/17 21:52 Dose: 100 mls/hr Lorazepam (Ativan) 0.5 mg PO Q8H PRN PRN Reason: Anxiety Metoprolol Tartrate (Lopressor) 25 mg PO BID [facility] Last Admin: 01/16/17 08:44 Dose: 25 mg Morphine Sulfate (Morphine) 2 mg IVPUSH ONETIME ONE Stop: 01/14/17 16:22 Last Admin: 01/14/17 16:29 Dose: 2 mg Morphine Sulfate (Morphine) 1 mg IVPUSH Q4H PRN PRN Reason: air hunger Last Admin: 01/18/17 08:15 Dose: 1 mg Nystatin (Mycostatin) 5 ml PO QID [facility] Last Admin: 01/14/17 21:41 Dose: Not Given Nystatin (Mycostatin) 5 ml PO QID [facility] Last Admin: 01/18/17 13:24 Dose: 5 ml Ondansetron HCl (Zofran) 4 mg IVPUSH ONETIME ONE Stop: 01/14/17 16:22 Last Admin: 01/14/17 16:28 Dose: 4 mg Ondansetron HCl (Zofran Odt) 4 mg PO Q6H PRN PRN Reason: nausea, able to take PO Oxycodone HCl (Oxycodone) 5 mg PO Q4H PRN PRN Reason: Pain (moderate 4-6) Last Admin: 01/18/17 12:57 Dose: 5 mg Senna/Docusate Sodium (Senna Plus) 1 tab PO BID PRN PRN Reason: Constipation Last Admin: 01/15/17 13:06 Dose: 1 tab *Q Meaningful Use (DIS) - VTE *Q VTE Criteria *Q: - Stroke *Q Stroke Criteria *Q: - AMI *Q AMI Criteria *Q:
== END 2017-01-18 14:40 | DRG 872 ==
LOC: FB.ED 15:15 → FB.MS 17:19
PROVIDERS: ADMIT Emergency Medicine; ATTEND Family Medicine
DX: A41.9 Sepsis, unspecified organism (principal); M90.5 Osteonecrosis in diseases classified elsewhere; C79.51 Secondary malignant neoplasm of bone; B37.0 Candidal stomatitis; E87.3 Alkalosis; C61 Malignant neoplasm of prostate; I10 Essential (primary) hypertension; Z66 Do not resuscitate; Z51.5 Encounter for palliative care; I89.0 Lymphedema, not elsewhere classified; R09.02 Hypoxemia; Z87.891 Personal history of nicotine dependence; R33.8 Other retention of urine; Z92.21 Personal history of antineoplastic chemotherapy; I25.10 Atherosclerotic heart disease of native coronary artery without angina pectoris; I25.2 Old myocardial infarction; Z95.1 Presence of aortocoronary bypass graft; M19.90 Unspecified osteoarthritis, unspecified site; H91.90 Unspecified hearing loss, unspecified ear; Z79.82 Long term (current) use of aspirin; Z79.52 Long term (current) use of systemic steroids
CPT/HCPCS: 36415; 71010; 80053; 83605; 85025; 87040 ×2; 87077; 96361; 96374; 96375; 99284; J2270; J2405; J7040 ×2; 36600; 51701; 51798; 81001; 82803; 83735; 84484; 85610; 85730; 93005; 93010; 94640; 99285; A9270-GY; J1170; J1650; J1956; J7620